=== PATIENT | male | born 1960 ===

== ENCOUNTER 2024-10-17 11:48 | Emergency (ER) | payer MEDICARE, OTHER, SELFPAY ==
[2024-10-17 11:52] VITALS: BP 149/107
--- NOTE | 2024-10-17 12:54 | ED.GENMED ---
History of Present Illness
General
Chief Complaint: Musculo-Skeletal Complaint
Source: patient
Exam Limitations: none
Time Seen by Provider: 10/17/24 12:41
Nursing documentation reviewed up to this point in time: agreed with
History of Present Illness
History of Present Illness:
64-year-old male with a past medical history of hypertension, hyperlipidemia presents emergency department today with concerns of left-sided neck pain. He reports that 4 days ago, he was moving a large fridge out of his rental property when he was
pulling a large fridge with a it analyst when he turned his head to the right sharply and bumped his head on the cabinet. He did not loose conscious or fall. He denies headache, dizziness, visual changes, facial paresthesias. He is concerned that he may
have a fracture in his cervical spine. Denies any upper extremity weakness, or decreased range of motion his upper extremities he denies any previous surgery in his spine. Patient requesting steroid injection in his neck for pain.
Past History
Past History
ED Past Medical History: HTN and Hypothyroidism
ED Past Surgical History: Orthopedic
Social History
Tobacco: Non-smoker
Alcohol: Daily
Review of Systems
Review of Systems
All Other Systems: ROS reviewed and negative except as documented in HPI and ROS
Phy Exam
Physical Exam
Physical Exam:
General: Patient is well appearing and in no acute distress; non-toxic
Skin: Warm and dry, no rashes or lesions
Head: Normocephalic, atraumatic
Eyes: Sclera non-icteric. EOMs intact.
Cardiac: Regular rate
Peripheral Vascular: Brisk capillary refill
Pulm: Normal respiratory effort
Musculoskeletal: No midline cervical spinal tenderness noted, mild left-sided upper trapezius/paracervical muscle tenderness noted. 5 out of 5 strength in bilateral upper extremities.
Neuro: CN II-XII intact, no focal neurologic deficits. Sensation intact.
Psychiatric: Appropriate mood and affect.
Course
Orders/Labs/Results
Orders:
Orders
10/17/24 13:09
CT Cervical Spine W/o Iv Contr Urgent
Comment:
Reason For Exam: midline spinal tenderness
Vital Signs
Initial and Last Documented VS:
Initial Vital Signs
Pulse Resp BP Pulse Ox
83 20 149/107 95
10/17/24 11:52 10/17/24 11:52 10/17/24 11:52 10/17/24 11:52
Last Documented Vital Signs
Pulse Resp BP Pulse Ox
68 18 126/82 99
10/17/24 14:44 10/17/24 14:44 10/17/24 14:44 10/17/24 14:44
MDM/Problems Addressed
Differential Diagnosis Includes:
Differentials include cervical muscle strain, cervical fracture, torticollis
MDM/Problems Addressed:
64-year-old male with past medical history of hypertension, hyperlipidemia presents emergency department today with concerns of left-sided neck pain following turning his neck sharply and bumping his head on the cabinet. Patient concerned about
potential cervical spine fracture. Patient does not have any upper extremity paresthesias. Physical exam is well-appearing no acute distress he has no midline spinal tenderness, CT scan is negative for any acute fracture or dislocation. Patient
stable for discharge. Will trial steroid and muscle relaxant considering patient has some limitation in range of motion with his persistence of his pain. Admit not indicated. Ortho follow-up encouraged, return precautions discussed.
Chronic conditions affecting care:
hlp, htn
*Pulse Oximetry
Patient hypoxic: no
*Critical Care Note
Total Time (30-74mins, 75-104mins- exclusive of procedures): Not Applicable
Data Reviewed
Review of Other/Old Records Reveals: Records (Reviewed previous ER physician documentation on 09/05/2018 patient seen for hand swelling and ecchymosis, no hospital discharge summaries to review)
Patient Management
Escalation/DeEscalation of care consider admission/obs:
Case and treatment plan reviewed with my attending, patient stable for discharge
ED Attending Note
-
Portions of this chart may have been created with voice recognition software.� Occasional wrong word or��sound alike� substitutions may have occurred due to the inherent limitations of voice recognition software.
Discharge Plan
Departure
Patient Disposition: Home (Routine Discharge)
Date of Disposition: 10/17/24
Time of Disposition: 15:30
Patient with high blood pressure during this ER visit?: Yes
Condition: Good
Discharge Problem:
Cervical muscle strain
Instructions: Neck pain, BLOOD PRESSURE
Prescriptions:
New
methylprednisolone [Medrol (Ramírez)] 4 mg tablets,dose pack
See Rx Instructions .ROUTE .COMPLEX Qty: 21 0RF
Rx Instructions:
orally per package directions
cyclobenzaprine 5 mg tablet
10 mg PO HS PRN (Reason: muscle spasm) Qty: 10 0RF
Referrals:
Bernabe Caldera, DO [Family Provider] -
Activity Restrictions/Additional Instructions:
Please do not take NSAIDs while taking the steroid.
PLEASE RETURN EMERGENCY DEPARTMENT IF YOU DEVELOP DIZZINESS, LIGHTHEADEDNESS, LOSS OF CONSCIOUS, HEADACHES, FEVERS OR CHILLS, FACIAL NUMBNESS AND TINGLING, CHEST PAIN, SHORTNESS OF BREATH, LOSS OF VISION, OR ANY OTHER SIGNS OR SYMPTOMS WORRISOME TO
YOU.
Interventions
Interventions:
*Risk Screen - Suicide Last Done: 10/17/24 11:52
*General Assessment Last Done: 10/17/24 11:52
*Nursing Disposition Last Done: 10/17/24 17:06
ED-Musculoskeletal Assessment Last Done: 10/17/24 13:15
Discharge Date and Time
Discharge Date/Time: 10/17/24 17:07
Print Language: POLISH
[2024-10-17 14:44] VITALS: BP 126/82
== END 2024-10-17 17:07 | disposition home or self-care (01) ==
LOC: EMR 11:48
PROVIDERS: EMERGENCY PHYSICIAN Emergency Medicine; FAMILY PHYSICIAN Family Medicine
DX: S16.1XXA Strain of muscle, fascia and tendon at neck level, initial encounter (principal); W22.8XXA Striking against or struck by other objects, initial encounter; I10 Essential (primary) hypertension; E78.00 Pure hypercholesterolemia, unspecified; E03.9 Hypothyroidism, unspecified
CPT/HCPCS: 99284; 72125

== ENCOUNTER 2024-11-22 06:28 | Day surgery (SDC) | payer MEDICARE, OTHER, SELFPAY | END 2024-11-22 14:48 | disposition home or self-care (01) | LOC: GI 06:28 | PROVIDERS: ATTENDING PHYSICIAN Internal Medicine | DX: Z12.11 Encounter for screening for malignant neoplasm of colon (principal); K57.30 Diverticulosis of large intestine without perforation or abscess without bleeding; K63.5 Polyp of colon; K62.1 Rectal polyp; Z86.0102 Personal history of hyperplastic colon polyps | CPT/HCPCS: 45380; 88305 ==